=== PATIENT | female | born 1975 | race Caucasian/White ===

== ENCOUNTER → 2017-01-29 | Outpatient (CLI) | payer OTHER ==
[~2017-01-29] MED LIST: ALBUTEROL17 GM INH; BACLOFEN10 MG PO; EC-NAPROSYN500 MG PO; IBUPROFEN PO; IBUPROFEN800 MG PO; KLONOPIN PO; LISINOPRIL20 MG; LORTAB 10/500 T1 TAB PO; LORTAB 5/500 TA1 TA1 PO; NEURONTIN800 MG PO; ROBAXIN 750750 MG PO; SOMA PO; SYMBICORT INH; ZANAFLEX PO; ZYRTEC-D T1 TAB.SR1 PO
--- NOTE | ~2017-01-29 | MR164 ---
[facility] A Service of [facility] & [facility] RADIOLOGY TEXT RESULTS PATIENT: LUIS FELIPE PEREZ LOCATION: [facility] : 71 UNIT #: [id number] AGE: [address]: GUME POLK SEX: F ORDER DR: [id number] [facility] [address] [place], [place] [address] [id number] O MR#: [id number] Acc #: [id number] NAME: LUIS FELIPE PEREZ : 1975 SEX: F STUDY DATE/TIME: 01/29/2017 14:19 UNIT: [facility] ROOM: STUDY DESCRIPTION: MR Shoulder Wo Contrast Lt Attending Physician: Gume Polk M.D. Referring Physician: Gume Polk M.D. Ordering Physician: Gume Polk M.D. Primary Care Physician: Anjali Brito M.D. MRI CENTER REPORT This report is preliminary unless electronic signature is present. EXAM MRI left shoulder 01/29/2017 COMPARISON STUDIES Comparison - left shoulder radiographs 09/27/2016, and MRI left shoulder 11/30/2006 [facility]. The comparison MRI of the shoulder is labeled left on DR but is probably the right, based on the appearance of the images. It was performed at [facility]. It will not be used for comparison. HISTORY History - order states left shoulder pain. History sheet states no trauma. No left shoulder surgery. Pain, decreased range of motion for 4 months. Previous job required a lot of lifting and possibly since she had surgery to right shoulder, put extra strain on left shoulder. FINDINGS The AC joint, coracoclavicular ligament complex, and coracoacromial ligament are within normal limits. There is marked supraspinatus and mild infraspinatus tendinosis with bursal-sided tendon fraying/irregularity without a discrete partial or full-thickness tear. There is mild fluid and inflammation in the subacromial-subdeltoid bursa compatible with mild bursitis. Subscapularis and teres minor tendons are intact. Rotator cuff muscles are normal. Biceps anchor and biceps tendon are normal. There is no labral pathology noted. 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 Glenohumeral joint shows no effusion, chondral/osteochondral lesion, or STS. [facility] A Service of [facility] & [facility] RADIOLOGY TEXT RESULTS PATIENT: LUIS FELIPE PEREZ LOCATION: [facility] : 73 UNIT #: [id number] AGE: [address]: GUME POLK SEX: F ORDER DR: loose body. There is no marrow lesion or fracture. Muscles are normal. IMPRESSION 1. Diffuse moderate supraspinatus and anterior infraspinatus tendinosis with bursal-sided tendon irregularity/fraying but no discrete partial or full-thickness tear. 2. Mild subacromial-subdeltoid bursitis. 3. 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 Dictated by... Karyna Triplett M.D. THIS IS AN ELECTRONICALLY VERIFIED REPORT Karyna Triplett M.D. at 02/03/2017 8:22 AM [facility]/pcl TD: 02/01/2017 21:09 JOB #: [id number] MRI CENTER REPORT Page 1 of 1 COPY
== END | disposition home or self-care (01) ==
LOC: CMRI 14:00
DX: M25.512 Pain in left shoulder (principal); M75.91 Shoulder lesion, unspecified, right shoulder; M75.51 Bursitis of right shoulder
CPT/HCPCS: 73221

== ENCOUNTER 2017-02-14 18:46 | Emergency (ER) | payer OTHER ==
[~2017-02-14] VITALS: Ht 180.3 cm; Wt 97.5 kg
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
== END 2017-02-14 21:57 | disposition home or self-care (01) ==
LOC: CED 18:46
DX: S13.4XXA Sprain of ligaments of cervical spine, initial encounter (principal); S33.5XXA Sprain of ligaments of lumbar spine, initial encounter; S40.012A Contusion of left shoulder, initial encounter; Z88.2 Allergy status to sulfonamides; Z88.0 Allergy status to penicillin; Z79.899 Other long term (current) drug therapy; V89.2XXA Person injured in unspecified motor-vehicle accident, traffic, initial encounter; Y92.410 Unspecified street and highway as the place of occurrence of the external cause
CPT/HCPCS: 72100; 72125; 73000; 96372; 99284; J1885